=== PATIENT | female | born 1980 | race Caucasian/White ===

== ENCOUNTER 2021-01-16 16:06 | Emergency (ER) | payer OTHER ==
[~2021-01-16] VITALS: Ht 154.9 cm; Wt 88.5 kg
[2021-01-16] MEDS ORDERED: OMEP20CA15 PO (16:15)
[2021-01-16 16:41] LABS: HEMATOCRIT 40.9 % (31.2-41.9); MEAN CORPUSCULAR HEMOGLOBIN 30.3 uug (24.7-32.8); MEAN CORPUSCULAR VOLUME 88.6 fL (75.5-95.3); PLATELET COUNT (AUTO) 221 K/uL (179-408)
[2021-01-16] MEDS ORDERED: KETOROLAC TROMETHAMINE 60 MG INJ IM ONE (16:45)
[2021-01-16 16:56] LABS: CREATININE 0.8 mg/dL (0.6-1.3); POTASSIUM 3.5 mmol/L (3.5-5.1)
[2021-01-16 17:01] LABS: BILIRUBIN,DIRECT 0.1 mg/dL (0.0-0.2); BILIRUBIN,TOTAL 0.3 mg/dL (0.2-1.0); TOTAL PROTEIN, SERUM 6.6 g/dL (6.4-8.2)
[2021-01-16 17:10] LABS: *BILIRUBIN,URIN NEGATIVE (NEGATIVE); *BLOOD, URINE NEGATIVE (NEGATIVE); *CLARITY,URINE CLEAR (CLEAR); *COLOR,URINE YELLOW (YELLOW); *KETONES,URINE NEGATIVE (NEGATIVE); *UROBILINOGEN,URINE 0.2 E.U./dl (NORMAL); LEUKOCYTE ESTERASE ,URINE NEGATIVE (NEGATIVE); NITRITE, URINE NEGATIVE (NEGATIVE); PH,URINE 6.5 (5.0-8.0); UGLUCOSE NEGATIVE (NEGATIVE)
[2021-01-16 17:15] LABS: *URINE HCG, QUAL NEGATIVE (NEGATIVE)
[2021-01-16] MEDS ORDERED: DICY20TA11 PO (17:33)
[2021-01-16] MEDS ORDERED: HYDR-4209 PO (18:03)
--- NOTE | 2021-01-16 18:18 | NUR ---
Pt became agitated when speaking with MD, confrontational. MD reasoned with her and got her to calm down. Gave pt RX and d/c instructions, pt verbalized understanding.
== END 2021-01-16 18:08 | disposition home or self-care (01) ==
LOC: ER 16:09
DX: R10.10 Upper abdominal pain, unspecified (principal); R00.1 Bradycardia, unspecified
CPT/HCPCS: 36415; 83690; 84703; 85025; A4663

== ENCOUNTER 2021-09-01 17:08 | Emergency (ER) | payer OTHER ==
[~2021-09-01] VITALS: Ht 154.9 cm; Wt 88.5 kg
[~2021-09-01 17:08] MED LIST: DICY20TA11 PO; HYDR-4209 PO; OMEP20CA15 PO
[2021-09-01] MEDS ORDERED: IV NORMAL SALINE 1000 ML BAG IV ONE (17:45)
[2021-09-01] MEDS ORDERED: DICYCLOMINE HCL 10 MG CAPSULE PO ONE (17:45)
[2021-09-01] MEDS ORDERED: KETOROLAC TROMETHAMINE 15 MG INJ IVP ONE (17:45)
[2021-09-01] MEDS ORDERED: KETOROLAC TROMETHAMINE 15 MG INJ ONE (17:50)
[2021-09-01] MEDS ORDERED: DICYCLOMINE HCL LIQ 10 MG/5 ML UDC ONE (17:51)
[2021-09-01 17:58] LABS: HEMATOCRIT 41.1 % (31.2-41.9); MEAN CORPUSCULAR VOLUME 89.1 fL (75.5-95.3); PLATELET COUNT (AUTO) 250 K/uL (179-408)
[2021-09-01 18:01] LABS: CREATININE 0.8 mg/dL (0.6-1.3); POTASSIUM 3.7 mmol/L (3.5-5.1)
[2021-09-01 18:07] LABS: BILIRUBIN,DIRECT 0.1 mg/dL (0.0-0.2); BILIRUBIN,TOTAL 0.3 mg/dL (0.2-1.0); TOTAL PROTEIN, SERUM 6.8 g/dL (6.4-8.2)
[2021-09-01] MEDS ORDERED: LORAZEPAM 2 MG/1 ML VIAL ONE (18:19)
[2021-09-01] MEDS ORDERED: ACET-2154 PO (18:22)
[2021-09-01] MEDS ORDERED: DICY10CA13 PO (18:22)
[2021-09-01 18:56] LABS: *BILIRUBIN,URIN 1+ (NEGATIVE); *BLOOD, URINE NEGATIVE (NEGATIVE); *CLARITY,URINE CLEAR (CLEAR); *COLOR,URINE YELLOW (YELLOW); *KETONES,URINE TRACE (NEGATIVE); *UROBILINOGEN,URINE 0.2 E.U./dl (NORMAL); LEUKOCYTE ESTERASE ,URINE NEGATIVE (NEGATIVE); NITRITE, URINE NEGATIVE (NEGATIVE); PH,URINE 5.5 (5.0-8.0); UGLUCOSE NEGATIVE (NEGATIVE)
--- NOTE | 2021-09-01 19:15 | NUR ---
pt a/o denies pain, she is asking for her prescriptions to be sent to a different pharmacy. I advised that I will ask the doctor to come in and talk to her.
--- NOTE | 2021-09-01 19:49 | NUR ---
Dr. Paul at bedside, he left the room. pt came out to the nurisng stating yelling and screaming that she wants another doctor and that she is not drug seeking. Dr. Paul states will you go back to the room if I give you pain medication. She left the nursing station and went back to her room.
[2021-09-01] MEDS ORDERED: HYDR-3980 PO (19:52)
--- NOTE | 2021-09-01 20:02 | NUR ---
pt more calm cooperative, discharge instructions reviewed with pt. Dr. Paul at bedside.
[2021-09-01 20:04] VITALS: BP 110/65
--- NOTE | 2021-09-01 20:04 | NUR ---
Patient discharged to home in stable condition. Written and verbal after care instructions given. Patient verbalizes understanding of instructions. Stressed follow up or return to ER for worsening s/s.
[2021-09-02 00:28] LABS: BACTERIA,URINE FEW /HPF (NONE SEEN); MUCUS,URINE FEW /LPF (0-FEW); RBC,URINE 0-3 /HPF (0-3); SQUAMOUS EPITHELIAL CELL,UR MODERATE /HPF (NONE SEEN); WBC,URINE 0-3 /HPF (0-3)
== END 2021-09-01 20:04 | disposition home or self-care (01) ==
LOC: ER 17:10
DX: N32.89 Other specified disorders of bladder (principal); R19.7 Diarrhea, unspecified; Z79.899 Other long term (current) drug therapy
CPT/HCPCS: 36415; 80048; 80076; 81001; 83690; 84702; 85025; 96361; 96374; 99284; J1885; A4663; J2060; J7040